=== PATIENT | female | born 1955 | race Caucasian/White ===

== ENCOUNTER → 2016-08-05 | Outpatient (CLI) | payer MEDICARE, MEDICAID ==
[~2016-08-05] MED LIST: AMLO5TAB2 PO; ASPI325T PO; CLOP75TA PO; DIAZ10 PO; FURO40TA PO; HYDR-3583 PO; LEXA10TA PO; METF-382 PO; METF1000 PO; OMEP20TA PO; PITAVASTATIN PO; PLAV75TA29 PO; POTA-243 PO; SERO300T PO; TOPR100T PO; TRAM50TA PO; VENTAER INH
[2016-08-05 13:24] LABS: HDL CHOLESTEROL 48.1 MG/DL (40.0-60.0); INDIRECT BILIRUBIN 0.1 MG/DL (0.0-0.8); TOTAL BILIRUBIN ADULT 0.2 MG/DL (0.2-1.0)
== END ==
LOC: PLAB 08:56
PROVIDERS: ATTEND Internal Medicine Cardiovascular Disease
DX: I25.10 Atherosclerotic heart disease of native coronary artery without angina pectoris (principal); E78.5 Hyperlipidemia, unspecified; Z95.5 Presence of coronary angioplasty implant and graft
CPT/HCPCS: 36415; 80061; 80076

== ENCOUNTER → 2016-10-07 | Outpatient (CLI) | payer MEDICARE, MEDICAID ==
[~2016-10-07] MED LIST changes: -METF-382 PO
[2016-10-07 13:39] LABS: ALKALINE PHOSPHATASE 83 U/L (45-117); ALT (GPT) 35 U/L (10-53); ANION GAP 6 MEQ/L (5-15); AST (GOT) 20 U/L (15-37); BICARBONATE 32.2 MEQ/L (21.0-32.0); BLOOD UREA NITROGEN 16 MG/DL (7-18); CHLORIDE 100 MEQ/L (98-107); GLOMERULAR FILTRATION RATE 48 ML/MIN (>89); GLUCOSE,FASTING 125 MG/DL (74-99); POTASSIUM 4.7 MEQ/L (3.5-5.1); SODIUM (NA) 138 MEQ/L (136-145); TOTAL BILIRUBIN ADULT 0.2 MG/DL (0.2-1.0)
[2016-10-07 16:15] LABS: HEMOGLOBIN A1a 0.8 %; HEMOGLOBIN Ao 83.9 %; HEMOGLOBIN LA1C 2.2 %; HEMOGLOBIN P3 4.1 %
== END ==
LOC: PLAB 09:52
PROVIDERS: ATTEND Family Medicine
DX: E11.9 Type 2 diabetes mellitus without complications (principal); I10 Essential (primary) hypertension; R35.8 Other polyuria
CPT/HCPCS: 36415; 80053; 83036

== ENCOUNTER → 2017-01-12 | Outpatient (CLI) | payer MEDICARE, MEDICAID ==
[~2017-01-12] MED LIST changes: +AZIT500T2 PO; -OMEP20TA PO; +PRED20 PO
[2017-01-12 12:47] LABS: ANION GAP 7 MEQ/L (5-15); BICARBONATE 30.2 MEQ/L (21.0-32.0); BLOOD UREA NITROGEN 24 MG/DL (7-18); CHLORIDE 102 MEQ/L (98-107); GLOMERULAR FILTRATION RATE 49 ML/MIN (>89); GLUCOSE,FASTING 123 MG/DL (74-99); POTASSIUM 4.7 MEQ/L (3.5-5.1); SODIUM (NA) 139 MEQ/L (136-145)
[2017-01-12 16:56] LABS: HEMOGLOBIN A1a 1.1 %; HEMOGLOBIN A1b 2.1 %; HEMOGLOBIN Ao 82.9 %; HEMOGLOBIN LA1C 2.3 %; HEMOGLOBIN P3 4.3 %
== END ==
LOC: PLAB 09:01
PROVIDERS: ATTEND Family Medicine
DX: E11.9 Type 2 diabetes mellitus without complications (principal); R79.89 Other specified abnormal findings of blood chemistry
CPT/HCPCS: 36415; 80048; 83036

== ENCOUNTER 2017-03-14 14:41 | Emergency (ER) | payer MEDICAID, MEDICARE, OTHER ==
[~2017-03-14] VITALS: Ht 167.6 cm; Wt 65.8 kg
[~2017-03-14 14:41] MED LIST changes: -AMLO5TAB2 PO
[2017-03-14 14:52] VITALS: BP 138/96; PULSE 72; RESP 18; TEMP 98.8; O2SAT 92
--- NOTE | 2017-03-14 15:56 | PD ---
HPI Chief Complaint: Skin Problem Time Seen by Provider: 15:54 Travel History International Travel<30 days: No Contact w/Intl Traveler<30days: No Traveled to known affect area: No History of Present Illness HPI 61-year-old female here for evaluation. She reports that she noticed a painful area on the plantar aspect left foot yesterday. Pain is an aching pain is worse when walking. She does not recall any injuries. She is on aspirin and Plavix. She has no other complaints at this time. PFSH Past Medical History Hx Anticoagulant Therapy: Yes Arthritis: No Asthma: No Bipolar Disorder: Yes Anxiety: Yes Depression: Yes Heart Rhythm Problems: No Cardiac Catheterization: Yes Cardiovascular Problems: Yes High Cholesterol: Yes Chest Pain: No Congestive Heart Failure: Yes COPD: No Cerebrovascular Accident: No Coronary Artery Disease: Yes Diabetes: Yes Diminished Hearing: No Endocrine: No Gastrointestinal Disorders: No GERD: No Genitourinary: Yes (UNRINARY INCONT.) Headaches: No Hepatitis: No Hiatal Hernia: No Hypertension: Yes Immune Disorder: No Kidney Stones: No Neurologic: No Psychiatric: Yes Reproductive: No Respiratory: No Immunizations Current: No Migraines: No Myocardial Infarction: No Renal Failure: No Seizures: No Sleep Apnea: No Ulcer: No ?: Not Menopausal: Yes Miscarriage: 1 Past Surgical History Abdominal Surgery: No Appendectomy: No Cardiac Surgery: Yes (CARDIAC STENT X 2 APPROX 8 MONTHS AGO) Cholecystectomy: No Coronary Stent: Yes Ear Surgery: No Endocrine Surgery: No Eye Surgery: No Genitourinary Surgery: No Gynecologic Surgery: No Oral Surgery: No Thoracic Surgery: No Social History Alcohol Use: Yes (OCCASIONAL) Tobacco Use: Yes (1 PPD) Substance Use: Yes (HX Methadone, ETOH, 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.) Allergies-Medications (Allergen,Severity, Reaction): Coded Allergies: chlorpromazine (Unverified Allergy, Unknown, UNKNOWN, 03/12/17) lisinopril (Unverified Allergy, Unknown, Swelling, 03/12/17) Reported Meds & Prescriptions Reported Meds & Active Scripts Active Ventolin Hfa 18 GM Inh (Albuterol Sulfate) 90 Mcg/Act Aer 2 Puff INH Q4H PRN Furosemide 40 Mg Tab 40 Mg PO DAILY Klor-Con 10 (Potassium Chloride) 10 Meq Tab 10 Meq PO DAILY Take 2 tablets daily with food Metformin (Metformin HCl) 1,000 Mg Tab 1,000 Mg PO BID With a meal Seroquel (Quetiapine Fumarate) 300 Mg Tab 300 Mg PO DAILY Toprol XL (Metoprolol Succinate) 100 Mg Tab 50 Mg PO BID Clopidogrel (Clopidogrel Bisulfate) 75 Mg Tab 75 Mg PO DAILY Aspirin 325 Mg Tab 325 Mg PO DAILY Tramadol (Tramadol HCl) 50 Mg Tab 50 Mg PO Q6H PRN Reported Valium (Diazepam) 10 Mg Tab 10 Mg PO TID PRN Hydrocodone-Acetaminophen 10-325 mg Tab 1 Tab PO Q6H PRN Review of Systems Musculoskeletal: No: Limited ROM Skin: Positive Other (positive for pain, ecchymosis) Physical Exam Narrative GENERAL: Well-developed well-nourished female in no acute distress SKIN: Warm and dry. There is a 2 cm circular area of mild ecchymosis to the plantar aspect of left foot. There is a centralized subcutaneous rounded cystic lesion less than half a centimeter in length which is tender to palpation. CARDIOVASCULAR: Regular rate and rhythm. No murmur appreciated. RESPIRATORY: No accessory muscle use. Clear to auscultation. Breath sounds equal bilaterally. GASTROINTESTINAL: Abdomen soft, non-tender, nondistended. Hepatic and splenic margins not palpable. MUSCULOSKELETAL: Skin as noted above with no obvious bony deformities. Full range of motion left foot. NEUROLOGICAL: Awake and alert. No obvious cranial nerve deficits. Motor grossly within normal limits. Normal speech. Data Data Last Documented VS Vital Signs Date Time Temp Pulse Resp B/P (MAP) Pulse Ox O2 Delivery O2 Flow Rate FiO2 03/14/17 14:52 98.8 72 18 138/96 (110) 92 Orders Orders Foot, Limited (2vws) (03/14/17 ) [facility] Medical Decision Making Medical Screen Exam Complete: Yes Emergency Medical Condition: Yes Medical Record Reviewed: Yes Differential Diagnosis Contusion left foot, cyst, ecchymosis, fracture, cellulitis, foreign body Narrative Course 61-year-old female on Plavix and aspirin presents for evaluation of pain to the plantar aspect of left foot. Examination reveals an area of ecchymosis with a central subcutaneous small cystic lesion. X-ray imaging reveals no acute abnormalities. Patient is stable for discharge. Diagnosis Primary Impression: Ecchymosis Additional Impression: Subcutaneous cyst Additional Instructions: Ice to the affected area several times a day 15-20 minutes at a time. Follow- up with primary care physician in 2 weeks. Return for any emergent medical conditions. Med/Other Pt SpecificInfo: No Change to Meds Disposition: 01 DISCHARGE HOME Condition: Stable Jose Mackey Mar 14, 2017 15:56
--- NOTE | 2017-03-14 16:43 | RADRPT ---
EXAM DATE/TIME: 03/14/2017 16:24 [place] COMPARISON: No previous studies available for comparison. INDICATIONS : Growth, swelling plantar surface. MEDICAL HISTORY : Diabetes mellitus type II. SURGICAL HISTORY : None. ENCOUNTER: Initial ACUITY: 1 day PAIN SCORE: 0/10 LOCATION: Left foot, plantar surface. FINDINGS: Two-view examination of the foot demonstrates advanced degenerative changes in the 1st MTP joint with significant joint space narrowing and mild osteophyte formation and sclerosis. Alignment of the oss eous structures is maintained. No focal bony excrescence is seen on the plantar forefoot or midfoot. No evidence of fracture. 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 Jeremy Vaughn MD on March 14, 2017 at 16:40 Board Certified Radiologist. This report was verified electronically.
== END 2017-03-14 17:36 | disposition home or self-care (01) ==
LOC: PHED 14:41 → PHEFT 17:36
DX: L72.9 Follicular cyst of the skin and subcutaneous tissue, unspecified (principal); R23.3 Spontaneous ecchymoses; E11.9 Type 2 diabetes mellitus without complications; I10 Essential (primary) hypertension; E78.00 Pure hypercholesterolemia, unspecified; F17.200 Nicotine dependence, unspecified, uncomplicated; Z79.84 Long term (current) use of oral hypoglycemic drugs; Z79.01 Long term (current) use of anticoagulants; Z86.59 Personal history of other mental and behavioral disorders; Z86.79 Personal history of other diseases of the circulatory system; Z87.448 Personal history of other diseases of urinary system
CPT/HCPCS: 73620; 99283

== ENCOUNTER → 2017-06-29 | Outpatient (CLI) | payer OTHER ==
[~2017-06-29] MED LIST changes: +ASPI-183 PO; -ASPI325T PO; -AZIT500T2 PO; +KLOR10TA PO; -LEXA10TA PO; -PITAVASTATIN PO; -PLAV75TA29 PO; -POTA-243 PO; -PRED20 PO
[2017-06-29 14:07] LABS: BLOOD UREA NITROGEN 27 MG/DL (7-18); CALCIUM 8.4 MG/DL (8.5-10.1); CHLORIDE 102 MEQ/L (98-107); CREATININE 1.17 MG/DL (0.50-1.00); GLOMERULAR FILTRATION RATE 47 ML/MIN (>89); GLUCOSE,FASTING 110 MG/DL (74-99); SODIUM (NA) 138 MEQ/L (136-145)
[2017-06-29 15:39] LABS: HEMOGLOBIN A1C 6.3 % (4.3-6.0)
== END ==
LOC: PLAB 08:37
PROVIDERS: ATTEND Family Medicine
DX: R79.89 Other specified abnormal findings of blood chemistry (principal); E11.9 Type 2 diabetes mellitus without complications
CPT/HCPCS: 36415; 80048; 83036

== ENCOUNTER 2017-10-19 18:50 | Emergency (ER) | payer OTHER ==
[2017-10-19] MEDS ORDERED: CLINDAMYCIN INJ 900 MG in SODIUM CHLORIDE 0.9% INJ 100 ML IV (20:15)
[2017-10-19 20:33] LABS: BASOPHIL # 0.1 TH/MM3 (0-0.2); EOSINOPHIL # 0.3 TH/MM3 (0-0.4); EOSINOPHIL % 3.4 % (0.0-4.0); HEMATOCRIT 41.1 % (35.0-46.0); HEMO FLAGS DIFF FINAL; HEMOGLOBIN 14.1 GM/DL (11.6-15.3); LYMPH % 34.8 % (9.0-44.0); LYMPHOCYTE # 2.6 TH/MM3 (1.0-4.8); MEAN CELL VOLUME 89.4 FL (80.0-100.0); MEAN CORPUSCULAR HEMOGLOBIN 30.8 PG (27.0-34.0); MEAN CORPUSCULAR HGB CONC 34.4 % (32.0-36.0); MEAN PLATELET VOLUME 10.1 FL (7.0-11.0); MONO % 6.7 % (0.0-8.0); MONOCYTE # 0.5 TH/MM3 (0-0.9); NEUT % 54.1 % (16.0-70.0); PLATELET COUNT 161 TH/MM3 (150-450); RED BLOOD COUNT 4.59 MIL/MM3 (4.00-5.30); RED CELL DISTRIBUTION WIDTH 12.6 % (11.6-17.2); WHITE BLOOD COUNT 7.5 TH/MM3 (4.0-11.0)
[2017-10-19 20:41] LABS: CHLORIDE 97 MEQ/L (98-107); POTASSIUM 4.2 MEQ/L (3.5-5.1); SODIUM (NA) 134 MEQ/L (136-145)
[2017-10-19 20:44] LABS: ANION GAP 4 MEQ/L (5-15); BICARBONATE 32.8 MEQ/L (21.0-32.0); BLOOD UREA NITROGEN 16 MG/DL (7-18); CALCIUM 8.9 MG/DL (8.5-10.1); GLUCOSE,RANDOM 146 MG/DL (74-106)
[2017-10-19 20:48] LABS: GLOMERULAR FILTRATION RATE 56 ML/MIN (>89)
[2017-10-19 20:51] LABS: LACTIC ACID 1.8 mmol/L (0.4-2.0)
[2017-10-19] MEDS: CLINDAMYCIN 900 MG/NS PREMIX 50 ML IV (21:17)
[2017-10-19] MEDS: IOHEXOL 350 MG/ML 10 ML VIAL (for RAD DIAG) IVCONTRAST (21:25)
[2017-10-19] MEDS: SULFAMETHOXAZOLE-TRIMETHOPRIM DS 800-160 MG TAB PO (22:18)
== END 2017-10-19 22:52 | disposition home or self-care (01) ==
LOC: PHED 18:50
DX: L03.211 Cellulitis of face (principal); E11.9 Type 2 diabetes mellitus without complications; I25.10 Atherosclerotic heart disease of native coronary artery without angina pectoris; I11.0 Hypertensive heart disease with heart failure; I50.9 Heart failure, unspecified; F41.9 Anxiety disorder, unspecified; F31.9 Bipolar disorder, unspecified; E78.5 Hyperlipidemia, unspecified; F17.200 Nicotine dependence, unspecified, uncomplicated
CPT/HCPCS: 70491; 80048; 83605; 85025; 87040; 96365; 96375; 99285-25